=== PATIENT | male | born 1935 | race Caucasian/White ===

== ENCOUNTER → 2016-07-10 | Outpatient (CLI) | payer OTHER, BC ==
[~2016-07-10] MED LIST: ASPIRIN325 MG PO; BIOTIN 5000MCG PO; BUSPAR10 MG PO; BYSTOLIC5 MG PO; CATAPRES0.1 MG PO; CYANOCOBALAM1000 MCG PO; DIAZEPAM5 MG PO; DOXAZOSIN MESYLA4 MG PO; FUROSEMIDE20 MG PO; GLUCOSAMINE/1 TABLET PO; IRON325 MG PO; MAGNESIUM250 MG PO; METAMUCIL POWD798 GM PO; MULTIVITAMIN1 EAC2 PO; NASONEX17 GM BOTH NARES; NIFEDIPINE ER30 MG PO; PANTOPRAZOLE SO40 MG PO; POTASSIUM GLUCO99 M1 PO; TEKTURNA HCT1 TABLE3 PO; TRAMADOL HCL50 MG PO; ULORIC80 MG PO; VITAMIN D31000 UNI2 PO
== END | disposition home or self-care (01) ==
DX: M17.12 Unilateral primary osteoarthritis, left knee (principal); R26.2 Difficulty in walking, not elsewhere classified; M62.81 Muscle weakness (generalized); M25.662 Stiffness of left knee, not elsewhere classified
CPT/HCPCS: 97110 GP; 97150 GO; 97161 GP; 97165 GO; G8978 GP; G8979 GP; G8980 GP; G8987 GO; G8988 GO; G8989 GO

== ENCOUNTER 2016-07-16 06:48 | Inpatient (IN) | payer OTHER, BC ==
[~2016-07-16] VITALS: Ht 172.7 cm; Wt 104.2 kg
[2016-07-16 07:42] VITALS: BP 165/88
[2016-07-16 15:08] VITALS: BP 166/90
[2016-07-16 16:01] VITALS: BP 155/81
[2016-07-16 19:51] VITALS: BP 181/87
[2016-07-17 00:09] VITALS: BP 153/79
[2016-07-17 03:53] VITALS: BP 167/82
[2016-07-17 06:19] LABS: INTER. NORMALIZED RATIO 1.1; PROTHROMBIN TIME 11.1 (9.2-11.2)
[2016-07-17 06:30] LABS: ANION GAP 8 MEQ/L (2-14); CHLORIDE 105 MEQ/L (99-109); GFR ESTIMATE (CALCULATED) > 59 mL/min/; GLUCOSE 109 mg/dL (70-99); SAMPLE HEMOLYSIS CHECK 0; SAMPLE ICTERIC CHECK 0; SAMPLE LIPEMIA CHECK 0; SODIUM 140 MEQ/L (136-147); UREA NITROGEN (BUN) 27 mg/dL (9-23)
[2016-07-17 07:04] LABS: HEMATOCRIT 33.2 % (38.0-50.0); MCV 88.1 FL (86-99)
[2016-07-17 07:32] VITALS: BP 176/84
[2016-07-17 16:21] VITALS: BP 140/72
[2016-07-18 00:20] VITALS: BP 105/60
[2016-07-18 05:37] LABS: HEMATOCRIT 30.9 % (38.0-50.0); MCV 86.6 FL (86-99)
[2016-07-18 05:44] LABS: INTER. NORMALIZED RATIO 1.3; PROTHROMBIN TIME 12.9 (9.2-11.2)
[2016-07-18] MEDS ORDERED: PERCOCET 5/31 TABLET PO (07:54)
[2016-07-18] MEDS ORDERED: VISTARIL25 MG PO (07:54)
[2016-07-18] MEDS ORDERED: COUMADIN2.5 MG PO (07:54)
[2016-07-18 08:02] VITALS: BP 136/75
[2016-07-18 16:00] VITALS: BP 144/69
[2016-07-18 21:30] VITALS: BP 146/72
[2016-07-19 00:38] VITALS: BP 143/75
[2016-07-19 05:27] LABS: INTER. NORMALIZED RATIO 1.3; PROTHROMBIN TIME 13.4 (9.2-11.2)
[2016-07-19 08:23] VITALS: BP 125/73
== END 2016-07-19 13:21 | DRG 470 ==
LOC: 2SOUTH 06:48 → 3EAST 06:48 → 2SOUTH 08:25 → 3EAST 14:54
PROVIDERS: Orthopaedic Surgery
PROC: 0SRD0J9 Replacement of Left Knee Joint with Synthetic Substitute, Cemented, Open Approach (ICD-10-PCS; principal; 2016-07-17)
DX: M17.12 Unilateral primary osteoarthritis, left knee (principal); I10 Essential (primary) hypertension; E78.5 Hyperlipidemia, unspecified; E53.8 Deficiency of other specified B group vitamins; G25.81 Restless legs syndrome; I25.2 Old myocardial infarction; Z86.718 Personal history of other venous thrombosis and embolism
CPT/HCPCS: 36415; 80048; 85014; 85018; 85610; 86850; 86900; 86901; C1713; J1200; J1650; J1885; J2250; J2405; J7050; J7120

== ENCOUNTER 2016-11-27 05:20 | Inpatient (IN) | payer OTHER, BC ==
[~2016-11-27] VITALS: Ht 170.2 cm; Wt 117.6 kg
[~2016-11-27 05:20] MED LIST changes: +APRESOLINE25 MG PO; +COUMADIN2.5 MG PO; +LASIX20 MG PO; +PERCOCET 5/31 TABLET PO; +PRAVACHOL80 MG PO; +REQUIP0.5 MG PO; +VISTARIL25 MG PO; +VITAMIN D31000 UNIT PO
[2016-11-27 06:37] VITALS: BP 163/74
[2016-11-27 12:16] VITALS: BP 181/86
[2016-11-27 12:18] VITALS: BP 162/82
[2016-11-27 16:35] VITALS: BP 138/63
[2016-11-27 21:04] VITALS: BP 131/68
[2016-11-28 00:44] VITALS: BP 123/72
[2016-11-28 03:40] VITALS: BP 134/79
[2016-11-28 06:57] LABS: HEMATOCRIT 31.2 % (38.0-50.0); MCV 89.4 FL (86-99)
[2016-11-28 07:22] LABS: ANION GAP 7 MEQ/L (2-14); CHLORIDE 106 MEQ/L (99-109); GFR ESTIMATE (CALCULATED) > 59 mL/min/; GLUCOSE 96 mg/dL (70-99); POTASSIUM 4.6 MEQ/L (3.7-5.4); SAMPLE HEMOLYSIS CHECK 0; SAMPLE ICTERIC CHECK 0; SAMPLE LIPEMIA CHECK 0; SODIUM 140 MEQ/L (136-147); UREA NITROGEN (BUN) 31 mg/dL (9-23)
[2016-11-28 07:48] VITALS: BP 120/64
[2016-11-28 15:41] VITALS: BP 141/79
[2016-11-29 00:03] VITALS: BP 138/67
[2016-11-29 06:23] LABS: HEMATOCRIT 30.5 % (38.0-50.0); MCV 90.2 FL (86-99)
[2016-11-29 08:00] VITALS: BP 159/82
[2016-11-29 15:44] VITALS: BP 128/71
[2016-11-29 23:52] VITALS: BP 121/57
[2016-11-30 07:03] VITALS: BP 142/65
[2016-11-30] MEDS ORDERED: ELIQUIS2.5 MG PO (09:35)
[2016-11-30] MEDS ORDERED: OXYCODONE HCL5 MG PO (09:35)
== END 2016-11-30 15:39 | DRG 470 ==
LOC: 3EAST 05:20 → 2SOUTH 05:20 → 3EAST 11:38
PROVIDERS: Orthopaedic Surgery
PROC: 0SRC0J9 Replacement of Right Knee Joint with Synthetic Substitute, Cemented, Open Approach (ICD-10-PCS; principal; 2016-11-27)
DX: M17.11 Unilateral primary osteoarthritis, right knee (principal); Z68.41 Body mass index [BMI] 40.0-44.9, adult; I10 Essential (primary) hypertension; F41.9 Anxiety disorder, unspecified; K21.9 Gastro-esophageal reflux disease without esophagitis; N40.0 Benign prostatic hyperplasia without lower urinary tract symptoms; M10.9 Gout, unspecified; G25.81 Restless legs syndrome; Z96.652 Presence of left artificial knee joint; Z86.711 Personal history of pulmonary embolism
CPT/HCPCS: 71010; 80048; 80176; 85014; 85018; C1713; J1885; J2175; J7050; J7120